=== PATIENT | male | born 1960 | race Caucasian/White ===

== ENCOUNTER → 2017-01-30 | Outpatient (CLI) | payer MEDICARE, MEDICAID ==
--- NOTE | ~2017-01-30 | PUL ---
PATIENT'S NAME: EDILSON SMITH [facility] AGE: 56 Y [address] ROOM: [place] [address] LOCATION: [facility] ADMIT DATE: 01/30/2017 Pulmonary DISCHARGE DATE: FAMILY PHYSICIAN: Suraj Salgado MD ATTENDING PHYSICIAN: BARBARA MURPHY NAME OF PROCEDURE: Pulmonary Function Test DATE OF PROCEDURE: January 30, 2017 TECH: ATripe, BUS VAN DRIVER REASON FOR EXAM: Asthma RESULTS: 1. FVC was 3.19 liters which is 77% of predicted and low, FEV1 was 2.07 liters which is 65% of predicted and low, and FEV1/FVC was 65% and low. The flow volume curve revealed significant airflow limitation. After bronchodilator administration FVC increased to 3.38 liters which is a 6% increase and FEV1 increased to 2.31 liters which is an 11% increase. FEV1/FVC was 68%. 2. DLCO was 23 with an adjusted DLCO of 23 which is 83% of predicted and low. 3. Total lung capacity was 5.8 liters which is 105% of predicted, and residual volume was 2.6 liters which is 137% of predicted and normal. 4. PH was 7.46, PCO2 was 45, PO2 was 59 while on room air. The base excess was elevated at 7.1. PHYSICIAN INTERPRETATION: The patient has moderate airflow limitation without a significant bronchodilator response. His diffusion capacity is normal. There is no evidence of restrictive lung disease. He has mild metabolic alkalosis without adequate respiratory compensation and no hypoxia at rest on room air. MD PUJA BETH/vee /[id number] dtt: 02/01/17 1205 , BARBARA MURPHY dtd: 01/30/17 1545
--- NOTE | ~2017-01-30 | PUL ---
PATIENT'S NAME: EDILSON SMITH [facility] AGE: 56 Y [address] ROOM: [place] [address] LOCATION: [facility] ADMIT DATE: 01/30/2017 Pulmonary DISCHARGE DATE: FAMILY PHYSICIAN: Suraj Salgado MD ATTENDING PHYSICIAN: BARBARA MURPHY NAME OF PROCEDURE: Six Minute Walk Test DATE OF PROCEDURE: January 30, 2017 TECH: ATripe, DEVELOPER ARCHITECT REASON FOR EXAM: Asthma RESULTS: The patient walked for 1200 feet at a pace of 2.27 miles/hour. The test was performed on room air. His oxygen saturation was 94%. At the beginning of the test and 95% at the end of the test. His perceived dyspnea was 4/10 on the Aron scale. He had appropriate increases in his heart rate and blood pressure. PHYSICIAN INTERPRETATION: The patient has mild limitation in his exercise capacity, without evidence of significant desaturations or hypoxia while on room air. MD PUJA BETH/vee /[id number] dtt: 02/01/17 1203 , BARBARA MURPHY dtd: 01/30/17 1535
[2017-01-30 13:21] LABS: PCO2 45 mmHg (35-45); PO2 59 mmHg (80-90)
== END | disposition disaster alternative care site (69) ==
LOC: GRTH 12:50
PROVIDERS: Internal Medicine Critical Care Medicine
DX: J45.909 Unspecified asthma, uncomplicated (principal)